=== PATIENT | male | born 1975 | race African-American/Black ===

== ENCOUNTER 2021-04-22 22:51 | Emergency (ER) | payer OTHER ==
[~2021-04-22] VITALS: Ht 170.2 cm; Wt 104.3 kg
[2021-04-22] MEDS ORDERED: NORFLEX100 MG PO (23:44)
[2021-04-22] MEDS ORDERED: MEDROLDOSEPACK PO (23:44)
[2021-04-22 23:50] VITALS: BP 147/76
== END 2021-04-22 23:51 | disposition home or self-care (01) ==
LOC: M.ERS 22:51
DX: M62.830 Muscle spasm of back (principal); M54.50 Low back pain, unspecified